=== PATIENT | female | born 1995 | race Caucasian/White ===

== ENCOUNTER 2017-12-16 09:48 | Outpatient (CLI) | payer OTHER ==
[~2017-12-16 09:48] MED LIST: CLEOCIN HCL150 MG; CLEOCIN HCL300 MG PO; IBUPROFEN800 MG; KETO10TA2 PO; TYLENOL32 MG/ML RC
== END 2017-12-16 11:26 | disposition home or self-care (01) ==
LOC: NST 09:48
DX: O30.003 Twin pregnancy, unspecified number of placenta and unspecified number of amniotic sacs, third trimester (principal); Z34.03 Encounter for supervision of normal first pregnancy, third trimester

== ENCOUNTER 2017-12-30 09:28 | Outpatient (CLI) | payer OTHER | END 2017-12-30 10:39 | disposition home or self-care (01) | LOC: NST 09:28 | DX: Z34.83 Encounter for supervision of other normal pregnancy, third trimester (principal) ==

== ENCOUNTER → 2018-01-04 | Outpatient (CLI) | payer OTHER | END | disposition home or self-care (01) | LOC: NST 14:14 | DX: O47.03 False labor before 37 completed weeks of gestation, third trimester (principal); Z34.83 Encounter for supervision of other normal pregnancy, third trimester ==

== ENCOUNTER 2018-01-20 09:58 | Outpatient (CLI) | payer OTHER | END 2018-01-20 10:37 | disposition home or self-care (01) | LOC: NST 09:58 | DX: Z34.83 Encounter for supervision of other normal pregnancy, third trimester (principal) ==